=== PATIENT | male | born 1970 | race Two or more races ===

== ENCOUNTER 2022-10-28 08:58 | Emergency (ER) | payer MEDICAID, SELFPAY ==
--- NOTE | ~2022-10-28 | XR_ITS ---
EXAMINATION: XR CHEST CLINICAL INFORMATION: Shortness of breath with productive cough COMPARISON: None available. TECHNIQUE: Frontal view of the chest was obtained. FINDINGS: No significant abnormality is noted involving the heart, lungs, mediastinum, bony thorax or soft tissues. XR/XR chest 1V IMPRESSION: Unremarkable examination.
[2022-10-28 09:45] VITALS: BP 128/82; PULSE 98; RESP 18; TEMP 36.9; O2SAT 97; BMI 23.3
[2022-10-28 10:01] LABS: MANUAL DIFF FLAG NO
[2022-10-28 10:02] LABS: Basophils Percent Auto 0.6 % (0-2); Eosinophils Absolute Auto 0.1 X10*3/uL (0.0-0.4); Eosinophils Percent Auto 1.4 % (0-4); Hematocrit 48.6 % (42.0-52.0); Hemoglobin 16.6 g/dl (14.0-18.0); Imm Gran Abs Auto 0.02 X10*3/uL (0.00-0.03); Imm Gran Pct Auto 0.3 % (0.0-0.4); Lymphocytes Absolute Auto 1.2 X10*3/uL (1.2-4.9); Lymphocytes Percent Auto 17.7 % (20-40); Mean Corpuscular HGB Conc 34.2 g/dl (31.0-36.0); Mean Corpuscular Hemoglobin 27.3 pg (27.0-33.0); Mean Corpuscular Volume 80.1 fL (80.0-98.0); Mean Platelet Volume 9.6 fL (9.4-12.4); Monocytes Absolute Auto 0.4 X10*3/uL (0.1-1.2); Monocytes Percent Auto 6.2 % (2-11); Neutrophils Absolute Auto 5.1 x10*3/uL (2.0-8.3); Neutrophils Percent Auto 73.8 % (45-73); Platelet Count 278 X10*3/uL (160-400); Red Blood Count 6.07 X10*6/uL (4.60-5.80)
[2022-10-28 10:48] LABS: Alanine Aminotransferase 9 U/L (0-40); Alkaline Phosphatase 101 U/L (39-117); Anion Gap 13 (12-20); Aspartate Amino Transferase 10 U/L (5-37); Bilirubin Total 0.8 mg/dL (0.0-1.0); Blood Urea Nitrogen 9 mg/dL (9-16); Calcium 9.1 mg/dL (8.4-10.2); Carbon Dioxide 21 mmol/L (22-29); Chloride 107 mmol/L (96-108); Creatinine Clr Calc Pharmacy 102.7; Estimated Glomerular Filt Rate > 60; Glucose Random 105 mg/dL (60-115); Potassium 3.9 mmol/L (3.3-5.1); Sodium 137 mmol/L (135-145); Total Protein 6.9 g/dL (6.5-8.0)
--- NOTE | 2022-10-28 11:04 | ECG_ITS ---
Test Reason : DIZZINESS Blood Pressure : / mmHG Vent. Rate : 077 BPM Atrial Rate : 077 BPM P-R Int : 150 ms QRS Dur : 090 ms QT Int : 348 ms P-R-T Axes : 078 -24 033 degrees QTc Int : 393 ms Normal sinus rhythm Normal ECG No previous ECGs available Referred By: Jeannine Becker Electronically Signed By:EDUARDO MORROW MD
--- NOTE | 2022-10-28 11:20 | ED_ITS ---
HPI - Dizziness General Chief Complaint: General Medical Stated Complaint: dizziness, vomiting Time Seen by Provider: 10/28/22 10:56 Source: patient Mode of arrival: ambulatory Limitations: no limitations History of Present Illness HPI Narrative: 52 yo male with no sig PMH here with c/o feeling dizzy at night when he gets out of bed, runny nose and cough. He did have n/v last night. He has no headaches, numbness weakness and no fevers. works at [employer] and has no issues walking. He denies GIB symptoms. He feels at baseline currently. He denies sick contacts. MD elicited complaint: dizziness Pertinent past history: BPPV Onset (ago): day(s) (3) Timing: sudden onset and intermittent Severity: moderate Description: room spinning Context: change in body position History of similar symptoms: Yes Exacerbating factors: change in body position Relieving factors: remaining still Associated symptoms: nausea, vomiting and other (cough and runny nose) Related Data Previous Rx's Medication Instructions Recorded meclizine 25 mg tablet 25 mg PO TID PRN dizziness #30 tabs 10/28/22 Allergies Allergy/AdvReac Type Severity Reaction Status Date / Time No Known Allergies Allergy Verified 10/28/22 09:45 Review of Systems Review of Systems: Constitutional : No Fever, No Chills, No Fatigue ENT/Mouth : No sore throat, pos Rhinorrhea Eyes: No Eye Pain, No Swelling, No Redness Cardiovascular : No Chest Pain, No SOB, No Dyspnea on Exertion Respiratory : pos Cough, No Sputum Gastrointestinal : pos Nausea, pos Vomiting, No Diarrhea, No abdominal Pain Genitourinary : No Dysuria, No Urinary Frequency, No Hematuria, Musculoskeletal : No joint pain, No Myalgias, No Joint Swelling Skin : No Skin Lesions, No rash Neuro : No Weakness, No Numbness, pos Dizziness, no Headache Psych : No Anxiety/Panic, No Depression Heme/Lymph: No Bruising, No Bleeding,No Lymphadenopathy Endocrine : No Polyuria, No Polydipsia All other systems reviewed and are negative [facility] Past Medical History Attestation statement: The following information was validated with the patient. Medical History Vertigo Social History Social History (Updated 10/28/22 @ 11:23 by Jeannine Becker DO) Patient Tobacco Use Status: Tobacco use Unknown Use of substances other than those prescribed or required for medical reasons: No Advance Directives: No Physical Exam Vital Signs: Vital Signs: Last Vital Signs Temp 98.4 F 10/28/22 09:45 Pulse 98 10/28/22 09:45 Resp 18 10/28/22 09:45 BP 128/82 10/28/22 09:45 Pulse Ox 97 10/28/22 09:45 O2 Del Method Room Air 10/28/22 09:45 BMI result Body Mass Index 23.3 Appearance: Alert. Oriented X3. No acute distress. Eyes: Pupils equal, round and reactive to light. ENT: Pharynx normal. Neck: Normal inspection. Neck supple. CVS: Normal heart rate and rhythm. Pulses normal. Respiratory: No respiratory distress. Breath sounds normal. Abdomen: Soft and nontender. Skin: Skin warm and dry. Normal skin color. Normal skin turgor. Extremities: No lower extremity edema. No calf ttp Neuro: Oriented X 3. No motor deficit. No sensory deficit. steady gait, no ataxia Course Course Course Narrative: feels better stable for DC Medications Administered Generic Name Dose Route Start Last Admin Trade Name Freq PRN Reason Stop Dose Admin Lactated Ringer's 1,000 mls @ 999 mls/hr 10/28/22 11:15 10/28/22 11:35 Lr IV 10/28/22 12:15 999 mls/hr .Q1H1M LALO Administration Discontinued Medications Generic Name Dose Route Start Last Admin Trade Name Freq PRN Reason Stop Dose Admin Meclizine HCl 25 mg 10/28/22 11:04 10/28/22 11:35 Meclizine Hcl 25 Mg Tablet PO 10/28/22 11:05 25 mg ONCE ONE Administration Medical Decision Making Medical Decision Making [facility] Narrative: 52 yo male with hx of vertigo here with 3 days of mild URI symptoms - hypoxia or diff breathing as well as runny nose and intermittent dizziness - no vision changes, weakness numbness or headache no deficits on exam and normal gait doubt posterior stroke has no meningeal signs. the patient is not toxic with clear lungs - suspect vertigo in setting of URI - labs, EKG, CXR and COVID swab along with fluids and meclizine. Differential Diagnosis Differential Diagnoses: The differential diagnosis associated with the presentation includes vertigo, sinusitis, dehydration, COVID, bronchitis no CP to suggest ACS or PE Lab Data MDM Lab Attestation statement: I reviewed the patient's lab results. 10/28/22 09:57 10/28/22 09:57 Labs: Lab Results 10/28/22 10/28/22 10/28/22 Range/Units 09:57 09:57 11:26 WBC 7.0 (4.8-10.8) X10*3/uL RBC 6.07 H (4.60-5.80) X10*6/uL Hgb 16.6 (14.0-18.0) g/dl Hct 48.6 (42.0-52.0) % MCV 80.1 (80.0-98.0) fL MCH 27.3 (27.0-33.0) pg MCHC 34.2 (31.0-36.0) g/dl RDW 13.0 (11.0-16.0) % Plt Count 278 (160-400) X10*3/uL MPV 9.6 (9.4-12.4) fL Immature Gran % (Auto) 0.3 (0.0-0.4) % Neut % (Auto) 73.8 H (45-73) % Lymph % (Auto) 17.7 L (20-40) % [place] % (Auto) 6.2 (2-11) % Eos % (Auto) 1.4 (0-4) % Baso % (Auto) 0.6 (0-2) % Lymph # (Auto) 1.2 (1.2-4.9) X10*3/uL [place] # (Auto) 0.4 (0.1-1.2) X10*3/uL Eos # (Auto) 0.1 (0.0-0.4) X10*3/uL Baso # (Auto) 0.0 (0.0-0.2) X10*3/uL Abs Immat Gran (auto) 0.02 (0.00-0.03) X10*3/uL Absolute Neuts (auto) 5.1 (2.0-8.3) x10*3/uL Absolute Nucleated RBC 0.000 (0.0-0.012) X10*3/uL Nucleated RBC % (auto) 0.0 (0.0-0.2) /100WBC Sodium 137 (135-145) mmol/L Potassium 3.9 (3.3-5.1) mmol/L Chloride 107 (96-108) mmol/L Carbon Dioxide 21 L (22-29) mmol/L Anion Gap 13 (12-20) BUN 9 (9-16) mg/dL Creatinine 0.72 (0.5-1.4) mg/dL Estim Creat Clear Calc 102.7 Estimated GFR > 60 Random Glucose 105 (60-115) mg/dL Calcium 9.1 (8.4-10.2) mg/dL Total Bilirubin 0.8 (0.0-1.0) mg/dL AST 10 (5-37) U/L ALT 9 (0-40) U/L Alkaline Phosphatase 101 (39-117) U/L Total Protein 6.9 (6.5-8.0) g/dL Albumin 4.0 (3.5-5.0) g/dL COVID-19 (AHMET) Negative (Negative) COVID-19 Clin Com See Note Independent Interpretation I performed an independent interpretation of an: EKG and Plain X-Ray (no pneumonia) Interpretation: Rate: 77 Rhythm: NSR [place]: left Normal P waves. Normal DAYSI. Normal QRS complex. ST T wave : normal no LELIA qTC: normal prior studies: no acute ischemia The study has been interpreted contemporaneously by me. . Radiology Impression Discussion of test interpretation with radiology: I have reviewed the radiologist's reading. Prescription Management I considered prescription management with: Other (antivert) Discharge Plan Discharge Clinical Impression: Vertigo, Acute upper respiratory infection Patient Disposition: Home, Self-Care Instructions: Upper Respiratory Infection (ED), Dizziness (ED) Additional Instructions: return for numbness, weakness, vomiting, chest pain, trouble breathing, vision changes, black or bloody stools, fevers or any other concerns. stay hydrated, get up slowly Prescriptions: New meclizine 25 mg tablet 25 mg PO TID PRN (Reason: dizziness) Qty: 30 0RF Stand Alone Forms: Work/School Release
[2022-10-28] MEDS: Lactated Ringers 1,000 ML 999 ML IV (11:35)
[2022-10-28] MEDS: Meclizine HCl 25 MG TABLET PO (11:35)
--- NOTE | 2022-10-28 11:44 | PC.NURSE ---
alert and oriented, respirations even and unlabored. stating dizziness at night, however not complaining of any dizziness at this time. iv established, fluids running medicated per the MAR. pt stating he does not wish for any narcotics as he is on parole.
[2022-10-28 11:45] LABS: COVID-19 Test Negative (Negative); IDNOW Serial# 08D9AD1C
[2022-10-28 12:15] VITALS: BP 130/80; RESP 16; O2SAT 98
== END 2022-10-28 12:15 | disposition home or self-care (01) ==
PROVIDERS: Emergency Provider Emergency Medicine
DX: J06.9 Acute upper respiratory infection, unspecified (principal); R42 Dizziness and giddiness; Z20.822 Contact with and (suspected) exposure to COVID-19
CPT/HCPCS: 36415; 71045; 80053; 85025; 87635; 93005; 99283; 99285

== ENCOUNTER → 2022-10-28 11:04 | Outpatient (BNV) | payer MEDICAID, SELFPAY | PROVIDERS: Emergency Provider Emergency Medicine; Visit Provider Internal Medicine Cardiovascular Disease | DX: R42 Dizziness and giddiness (principal) | CPT/HCPCS: 93010 ==

== ENCOUNTER 2023-01-18 18:53 | Emergency (ER) | payer MEDICAID, SELFPAY ==
--- NOTE | ~2023-01-18 | XR_ITS ---
EXAMINATION: XR CHEST 2 VIEWS CLINICAL INFORMATION: Cough. COMPARISON: None. TECHNIQUE: Frontal and lateral views of the chest were obtained. FINDINGS: The heart, great vessels, pulmonary vasculature and mediastinum are normal. The lungs show no focal infiltrate, effusion or pneumothorax. There is no acute osseous abnormality. There are chronic sclerotic changes of the left fourth and fifth ribs. XR/XR chest 2V IMPRESSION: No active cardiopulmonary disease.
--- NOTE | 2023-01-18 19:28 | ED.GENADULT ---
HPI - General Adult General Chief complaint: Upper Respiratory Symptoms Stated complaint: Congestion Time Seen by Provider: 01/18/23 19:59 Source: patient Mode of arrival: ambulatory Limitations: no limitations History of Present Illness HPI narrative: Patient is a 52-year-old male who presents emergency department for evaluation of upper respiratory symptoms endorsing productive cough with yellow phlegm, nasal congestion/rhinorrhea for 1 week with ill contacts at home. Denies fevers, headache, neck pain, chest pain, shortness of breath, nausea, vomiting, abdominal pain. He has been taking OTC Robitussin with only minimal improvement. He endorses remote history of asthma as a child. Related Data Previous Rx's Medication Instructions Recorded meclizine 25 mg tablet 25 mg PO TID PRN dizziness #30 tabs 10/28/22 azithromycin 250 mg tablet See Rx Instructions PO .COMPLEX #6 01/18/23 tabs Allergies Allergy/AdvReac Type Severity Reaction Status Date / Time No Known Allergies Allergy Verified 10/28/22 09:45 Review of Systems Review of Systems: Constitutional: No fever. No chills. No weakness. No fatigue. ENT/ Mouth: No Ear Pain, positive Nasal Congestion, positive sore throat, positive Rhinorrhea, No Swallowing Difficulty Skin: No rash or itching. Cardiovascular: No chest pain. No palpitations. Respiratory: No shortness of breath. Positive cough. Positive sputum production. Gastrointestinal: No nausea. No vomiting. No diarrhea. No abdominal pain. Genitourinary: No burning micturition. No urinary frequency. Neurologic: No headache. No dizziness. No syncope. No numbness or tingling in the extremities. Musculoskeletal: No muscle pain. No back pain. No joint pain or stiffness. Yes all other systems are reviewed and are negative ON LICENSE OF [facility] Past Medical History Attestation statement: The following information was validated with the patient. Source: old records reviewed Medical History Vertigo Social History Social History (Updated 10/28/22 @ 11:23 by Jeannine Becker DO) Patient Tobacco Use Status: Tobacco use Unknown Advance Directives: No Advance Directives Information Provided: No Physical Exam ED Vital Signs: Vital Signs - 24 hr 01/18/23 19:30 Temperature 98.9 F Pulse Rate 82 Respiratory Rate 20 Blood Pressure 125/90 H Pulse Oximetry 98 BMI result Body Mass Index 23.2 Appearance: Alert.?Oriented to person, place and time. No acute distress.?Normal affect. Eyes: Pupils equal, round and reactive to light.? ENT: Pharynx normal.??Uvula midline. TM normal bilaterally. Neck: Normal inspection.? Neck supple.??No cervical lymphadenopathy CVS: Heart sounds normal. Normal heart rate and rhythm.? Pulses normal.?? Respiratory: No respiratory distress.? Lung sounds clear to auscultation bilaterally?? Abdomen: Soft and non-tender. Normoactive bowel sounds.? Skin: Skin warm and dry.? Normal skin color.? Extremities: No lower extremity edema.? Neuro: Moves all extremities spontaneously. Sensation intact bilaterally. . No focal neuro deficits. Ambulates with normal steady gait. Course Course Course Narrative: This is an RME: Additional HPI, ROS, PE not included below will be deferred to primary provider. This is a 15-[id number]-dhx-male, with no known medical problems, presenting to the ER with complaints of cough, congestion, runny nose x 1 week. No fevers, nausea or vomiting. Reporting fiance and step son are sick at home with similar symptoms. Has been taking robitussin at home. Plan: COVID/flu/RSV, chest x-ray ordered. Medical Decision Making Medical Decision Making [facility] [place] Narrative: Patient is a 52-year-old male with past medical history of childhood asthma, presenting for evaluation of upper respiratory symptoms. COVID-19 testing negative. Influenza testing is negative. Chest x-ray without acute cardiopulmonary disease At this time history and physical exam not consistent with ACS/PE/pneumonia. Well-appearing, nontoxic, afebrile, no tachycardia or tachypnea/hypoxia. Speaking clear full sentences, ambulatory with steady gait. Discussed conservative treatment for bronchitis including rest, hydration, Tylenol/ibuprofen as needed for fever and body aches, saline nasal spray, humidifier, [id number] cold medication in addition will send a course of azithromycin to pharmacy. Advised to follow-up with primary care provider as needed, discussed reasons to return back to the emergency department. All questions were answered. Patient discharged home in stable condition. Provided with a return to work/school note. Differential Diagnosis Differential Diagnoses: The differential diagnosis associated with the presentation includes (As noted above) Lab Data [facility] [place] Lab Attestation statement: I reviewed the patient's lab results. (As noted above) Labs: Lab Results 01/18/23 Range/Units 20:12 Influenza Type A (PCR) NEGATIVE (Negative) Influenza Type B (PCR) NEGATIVE (Negative) RSV RNA Qual (PCR) NEGATIVE (Negative) SARS-CoV-2 RNA (RT-PCR) NEGATIVE (Negative) Independent Interpretation I performed an independent interpretation of an: Plain X-Ray (I personally interpreted chest x-ray and agree with radiologist impression, no evidence of pneumonia) Radiology Impression Discussion of test interpretation with radiology: I have reviewed the radiologist's reading. Radiologist Impression: XR/XR chest 2V IMPRESSION: No active cardiopulmonary disease. Independent Historian Clinical information obtained from an independent historian. History obtained from or confirmed by: Spouse (Present at bedside who confirms history) Prescription Management I considered prescription management with: Antibiotic Discharge Plan Discharge Clinical Impression: Bronchitis Patient Disposition: Home, Self-Care Instructions: Acute Bronchitis (ED) Prescriptions: New azithromycin 250 mg tablet See Rx Instructions .ROUTE .COMPLEX Qty: 6 0RF Rx Instructions: For 250 mg dose pack: take 500 mg today (day 1), then 250 mg for 4 days (days 2-5) No Action meclizine 25 mg tablet 25 mg PO TID PRN (Reason: dizziness) Qty: 30 0RF Referrals: Physician,Unknown J [Primary Care Provider] - Stand Alone Forms: Work/School Release
[2023-01-18 19:30] VITALS: BP 125/90; PULSE 82; RESP 20; TEMP 37.2; O2SAT 98; BMI 23.2
[2023-01-18 20:58] LABS: Influenza A PCR NEGATIVE (Negative); Influenza B PCR NEGATIVE (Negative); Resp Syncy Virus RNA Qual PCR NEGATIVE (Negative); SARS COV2 PCR INHOUSE NEGATIVE (Negative)
== END 2023-01-18 21:50 | disposition home or self-care (01) ==
PROVIDERS: Physician Assistant Medical; Emergency Provider Emergency Medicine
DX: J40 Bronchitis, not specified as acute or chronic (principal); R09.81 Nasal congestion; Z20.822 Contact with and (suspected) exposure to COVID-19; Z20.828 Contact with and (suspected) exposure to other viral communicable diseases
CPT/HCPCS: 0241U; 71046; 99282; 99283

== ENCOUNTER 2024-03-05 15:29 | Emergency (ER) | payer MEDICAID, SELFPAY ==
--- NOTE | ~2024-03-05 | XR_ITS ---
EXAMINATION: XR CHEST CLINICAL INFORMATION: coughing COMPARISON: Chest radiograph 01/18/2023 TECHNIQUE: PA view of the chest was obtained. FINDINGS: The lungs are well expanded. No focal consolidation, effusion, edema, or pneumothorax. The cardiomediastinal silhouette is within normal limits for technique and unchanged. No acute osseous abnormality. XR/XR chest 1V IMPRESSION: No acute pulmonary disease. Electronically signed by: Vale Giraldo DO 03/05/2024 04:29 PM [facility]
[2024-03-05 15:45] VITALS: BP 93/61; PULSE 97; RESP 17; TEMP 37.5; O2SAT 97; BMI 20.1
--- NOTE | 2024-03-05 15:48 | ED.GENADULT ---
HPI - General Adult General Chief complaint: Upper Respiratory Symptoms Stated complaint: headache, cough Time Seen by Provider: 03/05/24 19:02 Source: patient Limitations: no limitations History of Present Illness ED Provider: Fozia Jose PA-C HPI narrative: 53-year-old male presents with cough and cold symptoms x2 days. Associated dry repetitive cough, nasal congestion, generalized malaise. Denies fevers. Denies chest pain or shortness of breath. Patient states he was told he had asthma as a child, but does not take regularly prescribed medications. Related Data Previous Rx's ?Medication ?Instructions ?Recorded meclizine 25 mg tablet 25 mg PO TID PRN dizziness #30 tabs 10/28/22 azithromycin 250 mg tablet See Rx Instructions PO .COMPLEX #6 01/18/23 tabs albuterol sulfate 90 mcg/actuation 2 puff inhalation Q4-6H PRN 03/05/24 aerosol inhaler bronchospasm #6.7 grams Allergies Allergy/AdvReac Type Severity Reaction Status Date / Time No Known Allergies Allergy Verified 03/05/24 15:47 Review of Systems Review of Systems: Yes all other systems are reviewed and are negative Constitutional: Constitutional: Denies fatigue, Denies fever(s) and Reports malaise ENT: Reports nasal congestion Cardiovascular: Cardiovascular: Denies chest pain and Denies dyspnea Respiratory: Respiratory: Reports cough, Denies dyspnea and Denies wheezing Gastrointestinal: Gastrointestinal: Denies nausea and Denies vomiting Endocrine: Endocrine: Denies fatigue Allergic/Immunologic: Allergic/Immunologic: Denies wheezing PMFSH Past Medical History Attestation statement: The following information was validated with the patient. Medical History Vertigo Social History Social History (Updated 10/28/22 @ 11:23 by Jeannine Becker DO) Patient Tobacco Use Status: Tobacco use Unknown Advance Directives: No Advance Directives Information Provided: No Do you have a plan to hurt others: No Plan Physical Exam ED Vital Signs: Vital Signs - 24 hr 03/05/24 15:45 03/05/24 18:44 Temperature 99.5 F 98.9 F Pulse Rate 97 96 Respiratory Rate 17 18 Blood Pressure 93/61 129/80 Pulse Oximetry 97 96 Oxygen Delivery Method Room Air Room Air BMI result Body Mass Index 20.1 Const Other: Alert, overall well-appearing Orientation/consciousness: patient oriented x3 Resp Other: Nonlabored respirations, active bronchospasm cough, lungs clear to auscultation no wheezing Cardio Other: Normal peripheral perfusion Skin Other: Warm dry no rash Neuro General: patient oriented x3, no focal motor deficits and CN's II-XI intact bilaterally Psych Other: Calm cooperative Course Course Course Narrative: RME: done by [facility]. To 3 year male presents to ED for chest pain, coughing, sore throat, fever, body aches, and chills. Chest x-ray SARs strep ordered Medical Decision Making Medical Decision Making [facility] Narrative: 53-year-old male presents with cough and cold symptoms x2 days. Associated dry repetitive cough, nasal congestion, generalized malaise. Denies fevers. Denies chest pain or shortness of breath. Patient states he was told he had asthma as a child, but does not take regularly prescribed medications. No relevant chronic issues History: Per patient I have considered the following differential diagnoses: Viral syndrome, bronchitis, pneumonia, bronchospasm Plan: Patient has a virus causing his symptoms, viral panel and chest x-ray obtained from triage. Diagnostics were unremarkable. Due to the bronchospasm cough, I will send him with an inhaler. He is not actively wheezing to suggest an asthma exacerbation. He does not require steroid. He can follow up with his primary care provider as needed. I have independently reviewed the following tests: Labs: Viral panel negative, was screened for influenza RSV and COVID Chest x-ray: No pneumonia no pleural effusion or pulmonary edema Lab Data Labs: Lab Results 03/05/24 Range/Units 16:05 Influenza Type A (PCR) NEGATIVE (Negative) Influenza Type B (PCR) NEGATIVE (Negative) RSV RNA Qual (PCR) NEGATIVE (Negative) SARS-CoV-2 RNA (RT-PCR) NEGATIVE (Negative) S. pyogenes GrpA KIM Negative (Negative) Discharge Plan Discharge Clinical Impression: Viral infection, Acute bronchospasm Patient Disposition: Home, Self-Care Instructions: Viral Syndrome (ED), Bronchospasm (ED) Additional Instructions: You were screened for COVID, influenza and RSV, the viral panel was negative. The chest x-ray was clear you do not have pneumonia. You have yet another virus causing your symptoms. The kind of cough that you have his called a bronchospasm, your airways currently reactive. See home care instructions. Use the albuterol inhaler as directed for these symptoms. Follow up with your primary care provider as needed. Prescriptions: New albuterol sulfate 90 mcg/actuation HFA aerosol inhaler 2 puff inhalation Q4-6H PRN (Reason: bronchospasm) Qty: 6.7 0RF No Action meclizine 25 mg tablet 25 mg PO TID PRN (Reason: dizziness) Qty: 30 0RF azithromycin 250 mg tablet See Rx Instructions .ROUTE .COMPLEX Qty: 6 0RF Rx Instructions: For 250 mg dose pack: take 500 mg today (day 1), then 250 mg for 4 days (days 2-5) Stand Alone Forms: Work/School Release Print Language: Arabic
[2024-03-05 16:29] LABS: IDNOW Serial# 08D9AD1C; Strep A Nucleic Acid Negative (Negative)
[2024-03-05 16:49] LABS: Influenza A PCR NEGATIVE (Negative); Influenza B PCR NEGATIVE (Negative); Resp Syncy Virus RNA Qual PCR NEGATIVE (Negative); SARS COV2 PCR INHOUSE NEGATIVE (Negative)
[2024-03-05 18:44] VITALS: BP 129/80; PULSE 96; RESP 18; TEMP 37.2; O2SAT 96
[2024-03-05 19:51] VITALS: O2SAT 98
[2024-03-05 19:53] VITALS: BP 126/70; PULSE 96; RESP 16; TEMP 36.6; O2SAT 98
--- NOTE | 2024-03-05 19:55 | PC.NURSE ---
Pt a&O, on respiratory distress, able to speak clearly, reviewed discharge instructions with pt. pt verbalized understanding, Upon discharge pt had a steady gait.
== END 2024-03-05 19:55 | disposition home or self-care (01) ==
PROVIDERS: Physician Assistant; Emergency Provider Emergency Medicine Emergency Medical Services
DX: B34.9 Viral infection, unspecified (principal); J98.01 Acute bronchospasm; R51.9 Headache, unspecified; R05.9 Cough, unspecified; R09.81 Nasal congestion; Z03.818 Encounter for observation for suspected exposure to other biological agents ruled out
CPT/HCPCS: 0241U; 71045; 87651; 99283; 99284